=== PATIENT | male | born 1970 | race Caucasian/White ===

== ENCOUNTER 2025-03-20 13:54 | Emergency (ER) | payer SELFPAY ==
--- NOTE | ~2025-03-20 | XR_ITS ---
EXAMINATION: XR chest 1V portable DATE: 03/20/2025 14:35 INDICATION: Chest pain TECHNIQUE: AP view of the chest was obtained. COMPARISON: None FINDINGS: The lungs are clear with no focal airspace opacities, pulmonary edema, pleural effusion or pneumothor ax. The cardiomediastinal silhouette is normal. Moderate degenerative skeletal changes in the cervica l spine and left glenohumeral joint. IMPRESSION: 1. No acute cardiopulmonary disease. Reviewed, dictated and finalized at location A.
--- NOTE | ~2025-03-20 | US_ITS ---
EXAMINATION:US venous doppler LE LT INDICATION:Left lower extremity swelling TECHNIQUE: Multiple grayscale, color flow and Doppler images of the left lower extremity deep venous systems were obtained and reviewed. COMPARISON:No prior studies for comparison. FINDINGS: The common femoral, superficial femoral and popliteal veins demonstrate normal respiratory variation, augmentation and compressibility. Color flow is also seen within the posterior tibial, pe roneal, greater saphenous and profunda veins. IMPRESSION: 1: No lower extremity deep venous thrombosis. Reviewed, dictated and finalized at location A.
--- NOTE | ~2025-03-20 | CT_ITS ---
EXAMINATION: CTA chest PE protocol DATE: 03/20/2025 15:23 CDT INDICATION: Chest pain and hypoxia TECHNIQUE: Computed tomographic angiography (CTA) of the chest was performed with 100 mL Omnipaque-35 0 intravenous contrast. The dose-length product was 896.56 mGy-cm. Maximum intensity projection 3D-re constructions of the aorta and other arteries were constructed by the technologist on a separate work station. COMPARISON: None. FINDINGS/OBSERVATIONS: PULMONARY ARTERIES: No filling defect is identified within the main or proximal pulmonary artery. The main pulmonary artery is not enlarged. THORACIC AORTA: No aneurysmal dilatation or dissection is present. The great vessels are intact LUNGS: Subpleural blebs detected within the posterior inferior bilateral lung bases. Dependent atelectasis is also noted. Interstitial thickening is present. The remainder of the lungs are clear MEDIASTINUM: No morphologically suspicious or pathologically enlarged lymph nodes are identified with in the mediastinum or bilateral axilla. BONES OF THE CHEST: No acute fracture. Moderate degenerative disease. No lytic or blastic lesions. HEART: The heart is borderline enlarged, without pericardial effusion. IMPRESSION: No pulmonary embolus. No thoracic aortic dissection. Subpleural blebs within the posterior inferior bilateral lung bases with dependent atelectasis and in terstitial thickening. Reviewed, dictated and finalized at location A. IMPRESSION: No pulmonary embolus. No thoracic aortic dissection. Subpleural blebs within the posterior inferior bilateral lung bases with depend ent atelectasis and interstitial thickening.
--- NOTE | 2025-03-20 14:03 | ECG_ITS ---
Test Date: 2025-03-20 14:08:06 Measurements Intervals [place] Rate: 81 P: 20 MT: 152 QRS: -21 QRSD: 97 T: 31 QT: 355 QTc: 413 Interpretive Statements SINUS RHYTHM CONSIDER ANTERIOR INFARCT, AGE INDETERMINATE BASELINE WANDER- V3 ABNORMAL ECG No previous ECG available for comparison Electronically Signed On 03-20-2025 15:06:44 CDT by Jabier Stein D.O.
[2025-03-20 14:13] VITALS: BP 172/91; PULSE 79; RESP 19; TEMP 36.5; O2SAT 93; O2SAT 95
[2025-03-20 14:16] LABS: Hematocrit 42.3 % (42.0-52.0); Hemoglobin 14.5 g/dL (14.0-18.0); Immature Granulocyte Percent A 0.4 % (0-0.5); Lymphocytes Absolute Auto 2.12 K/mm3 (0.9-3.2); Mean Corpuscular HGB Conc 34.3 g/dl (32-36); Mean Corpuscular Hemoglobin 29.7 pg (26-34); Mean Corpuscular Volume 86.7 fl (80-100); Nucleated Red Blood Cells Absolute Auto 0.000 K/mm3 (0.0-0.012); Nucleated Red Blood Cells Perc 0.0 % (0.0-0.2); Platelet Count Result 187 k/mm3 (150-375); Red Blood Count 4.88 M/mm3 (4.6-6.20); White Blood Count 7.1 K/mm3 (4.5-10.0)
[2025-03-20 14:28] LABS: INR 1.0; Prothrombin Time 13.2 Seconds (11.1-14.7)
[2025-03-20 14:29] LABS: Partial Thromboplastin Time 34.4 Seconds (22.3-36.8)
[2025-03-20 14:32] LABS: Alanine Aminotransferase 36 U/L (6-50); Albumin Level 4.4 g/dL (3.5-5.1); Alkaline Phosphatase 89 U/L (38-126); Anion Gap 11 mmol/L (4-12); Aspartate Amino Transferase 37 U/L (17-59); Bilirubin,Total 0.5 mg/dL (0.2-1.3); Blood Urea Nitrogen 5 mg/dL (9-20); Calcium 8.9 mg/dL (8.4-10.2); Carbon Dioxide 21 mmol/L (22-30); Chloride 101 mmol/L (98-107); Estimated Glomerular Filt Rate > 60; Glucose 285 mg/dL (65-110); Potassium 4.1 mmol/L (3.4-5.0); Sodium 133 mmol/L (137-145); Total Protein 8.4 g/dL (6.3-8.2)
[2025-03-20 14:44] LABS: NT Pro B Type Natriuretic Pept 48 pg/mL (19.9-100); Troponin I < 0.012 ng/mL (0.000-0.034)
[2025-03-20 14:50] LABS: Add Urine Microscopic? YES; Appearance Urine Clear (Clear); Glucose Urine UA 3+ mg/dL (Negative); Leukocyte Esterase Ur Negative LEU/UL (Negative); Nitrate Urine Negative (Negative); Non Pathogenic Casts 0-2; Specific Grav Ur 1.015 (1.001-1.035)
--- NOTE | 2025-03-20 15:05 | ED.GENADULT ---
HPI - General Adult General Chief complaint: Chest Pain Stated complaint: CP/SOB History of Present Illness HPI narrative: 54-year-old male smoker presents to the emergency department for evaluation for substernal chest pain. Patient reports he has had intermittent chest pain but states worsened over the last few days. Patient does have some left lower extremity swelling but states acutely worsened today. Patient states his last stress test was approximately 10 years ago. Related Data Allergies Allergy/AdvReac Type Severity Reaction Status Date / Time No Known Allergies Allergy Verified 03/20/25 15:07 Review of Systems Review of Systems: All systems reviewed & are unremarkable except as noted in HPI and below Exam Narrative: APPEARANCE: Well appearing, no pain, no distress, well-nourished. HEAD: normocephalic, atraumatic. EYES: PERRLA/EOMI, conjunctivae clear. NOSE: Normal no drainage EARS:TMS clear with good light reflex. THROAT: Pharynx clear, no exudate. NECK: Supple. No adenopathy, no masses. RESPIRATORY: Expiratory wheeze lower lobes bilaterally CARDIOVASCULAR: Regular rate and rhythm without murmurs rubs or gallops. ABDOMINAL: Soft, nontender, nondistended, normal bowel sounds MUSCULOSKELETAL: Tenderness of left foot and left posterior calf with bilateral +1 edema NEURO: Alert. Cranial nerves II through XII intact. Good gait. Good coordination SKIN: Warm, dry. Normal Color Course Vital Signs Vital signs: Vital Signs Temperature 97.7 F 03/20/25 14:13 Pulse Rate 79 03/20/25 14:13 Respiratory Rate 19 03/20/25 14:13 Blood Pressure 172/91 H 03/20/25 14:13 Pulse Oximetry 95 03/20/25 14:13 Oxygen Delivery Nasal Cannula 03/20/25 14:13 Oxygen Flow Rate 3 03/20/25 14:13 Temperature 97.7 F 03/20/25 14:13 Pulse Rate 82 03/20/25 15:51 Respiratory Rate 17 03/20/25 15:51 Blood Pressure 173/87 H 03/20/25 15:51 Pulse Oximetry 97 03/20/25 15:51 Oxygen Delivery Nasal Cannula 03/20/25 15:50 Oxygen Flow Rate 5 03/20/25 15:50 Medical Decision Making [facility] Narrative Medical decision making narrative: 54-year-old male presents emergency department for evaluation for left foot pain and substernal chest pain. Patient is currently afebrile with no leukocytosis hemoglobin 14.5. Patient has INR 1.0. Patient has no acute abnormalities on his CMP other than elevated blood glucose of 285. ProBNP is not elevated and patient has negative serial troponins. UA was negative for infection. Ultrasound was negative for a DVT and CTA was negative for pulmonary embolism. Chest x-ray shows no acute cardiopulmonary abnormality. Differential Diagnosis Differential Diagnosis: ACS, pulmonary embolism, pneumothorax, DVT, COPD, pneumonia Vital Signs Vital Signs: Vital Signs Temperature 97.7 F 03/20/25 14:13 Pulse Rate 79 03/20/25 14:13 Respiratory Rate 19 03/20/25 14:13 Blood Pressure 172/91 H 03/20/25 14:13 Pulse Oximetry 95 03/20/25 14:13 Oxygen Delivery Nasal Cannula 03/20/25 14:13 Oxygen Flow Rate 3 03/20/25 14:13 Temperature 97.7 F 03/20/25 14:13 Pulse Rate 82 03/20/25 15:51 Respiratory Rate 17 03/20/25 15:51 Blood Pressure 173/87 H 03/20/25 15:51 Pulse Oximetry 97 03/20/25 15:51 Oxygen Delivery Nasal Cannula 03/20/25 15:50 Oxygen Flow Rate 5 03/20/25 15:50 Lab Data Lab results reviewed: Yes I reviewed the patient's lab results. 03/20/25 14:08 03/20/25 14:09 Labs: Lab Results 03/20/25 03/20/25 03/20/25 Range/Units 14:08 14:09 14:09 WBC 7.1 (4.5-10.0) K/mm3 RBC 4.88 (4.6-6.20) M/mm3 Hgb 14.5 (14.0-18.0) g/dL Hct 42.3 (42.0-52.0) % MCV 86.7 (80-100) fl MCH 29.7 (26-34) pg MCHC 34.3 (32-36) g/dl RDW 13.7 (11.5-14.5) % Plt Count 187 (150-375) k/mm3 MPV 10.1 (7.4-10.4) fl Immature Gran % (Auto) 0.4 (0-0.5) % Neut % (Auto) 60.1 (45.5-73.1) % Lymph % (Auto) 29.8 (18.3-44.2) % Mobile % (Auto) 7.7 (2.6-8.5) % Eos % (Auto) 1.4 (0-4.4) % Baso % (Auto) 0.6 (0.2-1.2) % Lymph # (Auto) 2.12 (0.9-3.2) K/mm3 Mobile # (Auto) 0.6 (0.1-0.6) K/mm3 Eos # (Auto) 0.1 (0-0.3) K/mm3 Baso # (Auto) 0.0 (0.0-0.1) K/mm3 Abs Immat Gran (auto) 0.03 (0.00-0.031) K/mm3 Absolute Neuts (auto) 4.3 (1.3-6.7) K/mm3 Absolute Nucleated RBC 0.000 (0.0-0.012) K/mm3 Nucleated RBC % 0.0 (0.0-0.2) % PT 13.2 (11.1-14.7) Seconds INR 1.0 APTT 34.4 (22.3-36.8) Seconds Sodium 133 L (137-145) mmol/L Potassium 4.1 (3.4-5.0) mmol/L Chloride 101 (98-107) mmol/L Carbon Dioxide 21 L (22-30) mmol/L Anion Gap 11 (4-12) mmol/L BUN 5 L (9-20) mg/dL Creatinine 0.69 L (0.7-1.3) mg/dL Estim Creat Clear Calc Not Reportable Estimated GFR > 60 (59 - ) Glucose 285 H (65-110) mg/dL Calcium 8.9 (8.4-10.2) mg/dL Total Bilirubin 0.5 (0.2-1.3) mg/dL AST 37 (17-59) U/L ALT 36 (6-50) U/L Alkaline Phosphatase 89 (38-126) U/L Troponin I < 0.012 Cancelled (0.000-0.034) ng/mL NT-Pro-B Natriuret Pep 48 (19.9-100) pg/mL Total Protein 8.4 H (6.3-8.2) g/dL Albumin 4.4 (3.5-5.1) g/dL Urine Color (Yellow) Urine Appearance (Clear) Urine pH (5.0-9.0) Ur Specific [place] (1.001-1.035) Urine Protein (Negative) mg/dL Urine Glucose (UA) (Negative) mg/dL Urine Ketones (Negative) mg/dL Ur Blood (Man) (Negative) Urine Nitrate (Negative) Urine Bilirubin (Negative) Urine Urobilinogen (<2.0) mg/dL Leukocyte Esterase Rfl (Negative) ELWIS/UL Urine RBC (0-2) /hpf Urine WBC (0-3) /hpf Ur Squamous Epith Cells (Few) /hpf Urine Bacteria /hpf Urine Casts 03/20/25 03/20/25 Range/Units 14:39 16:57 WBC (4.5-10.0) K/mm3 RBC (4.6-6.20) M/mm3 Hgb (14.0-18.0) g/dL Hct (42.0-52.0) % MCV (80-100) fl MCH (26-34) pg MCHC (32-36) g/dl RDW (11.5-14.5) % Plt Count (150-375) k/mm3 MPV (7.4-10.4) fl Immature Gran % (Auto) (0-0.5) % Neut % (Auto) (45.5-73.1) % Lymph % (Auto) (18.3-44.2) % Mobile % (Auto) (2.6-8.5) % Eos % (Auto) (0-4.4) % Baso % (Auto) (0.2-1.2) % Lymph # (Auto) (0.9-3.2) K/mm3 Mobile # (Auto) (0.1-0.6) K/mm3 Eos # (Auto) (0-0.3) K/mm3 Baso # (Auto) (0.0-0.1) K/mm3 Abs Immat Gran (auto) (0.00-0.031) K/mm3 Absolute Neuts (auto) (1.3-6.7) K/mm3 Absolute Nucleated RBC (0.0-0.012) K/mm3 Nucleated RBC % (0.0-0.2) % PT (11.1-14.7) Seconds INR APTT (22.3-36.8) Seconds Sodium (137-145) mmol/L Potassium (3.4-5.0) mmol/L Chloride (98-107) mmol/L Carbon Dioxide (22-30) mmol/L Anion Gap (4-12) mmol/L BUN (9-20) mg/dL Creatinine (0.7-1.3) mg/dL Estim Creat Clear Calc Estimated GFR (59 - ) Glucose (65-110) mg/dL Calcium (8.4-10.2) mg/dL Total Bilirubin (0.2-1.3) mg/dL AST (17-59) U/L ALT (6-50) U/L Alkaline Phosphatase (38-126) U/L Troponin I < 0.012 (0.000-0.034) ng/mL NT-Pro-B Natriuret Pep (19.9-100) pg/mL Total Protein (6.3-8.2) g/dL Albumin (3.5-5.1) g/dL Urine Color Yellow (Yellow) Urine Appearance Clear (Clear) Urine pH 6.0 (5.0-9.0) Ur Specific [place] 1.015 (1.001-1.035) Urine Protein Trace (Negative) mg/dL Urine Glucose (UA) 3+ H (Negative) mg/dL Urine Ketones Negative (Negative) mg/dL Ur Blood (Man) Negative (Negative) Urine Nitrate Negative (Negative) Urine Bilirubin Negative (Negative) Urine Urobilinogen 1.0 (<2.0) mg/dL Leukocyte Esterase Rfl Negative (Negative) LEWIS/UL Urine RBC 0-2 (0-2) /hpf Urine WBC 0-5 (0-3) /hpf Ur Squamous Epith Cells None seen (Few) /hpf Urine Bacteria None seen /hpf Urine Casts 0-2 Imaging Data Radiologist's impression: Impressions Chest X-Ray 03/20/25 14:39 IMPRESSION: 1. No acute cardiopulmonary disease. Chest CTA 03/20/25 15:22 IMPRESSION: No pulmonary embolus. No thoracic aortic dissection. Subpleural blebs within the posterior inferior bilateral lung bases with dependent atelectasis and interstitial thickening. Venous Doppler Study 03/20/25 15:41 IMPRESSION: 1: No lower extremity deep venous thrombosis. Discharge Plan Discharge Clinical Impression: Chest pain, Shortness of breath Patient Disposition: Home Condition: Stable Instructions: Antibiotic Form, Chest Pain (ED) Additional Instructions: Have close follow-up with your primary care physician for additional outpatient cardiac testing. If you have any worsening symptoms then please call or return to the emergency department. Patient is safe to drive a commercial vehicle Patient Language: Sinhala Prescriptions: New albuterol sulfate 90 mcg/actuation HFA aerosol inhaler 1 puff inhalation QID Qty: 6.7 0RF Follow-up/Referrals: PHYSICIAN,WIND COMMISSIONING TECHNICIAN [Primary Care Provider] - Stand Alone Forms: Work/School Release IP Quality HEART score for chest pain patients History: slightly suspicious ECG: normal Age: > 45 and < 65 years Risk factors: 1 or 2 risk factors Troponin: < or = to 1x normal limit Heart score: 2
--- NOTE | 2025-03-20 15:33 | PC.NURSE ---
pt in ultrasound at this time
[2025-03-20] MEDS: ALBUTEROL SULFATE NEB 2.5 MG/3 ML INH 5 MG INHALATION (15:40)
[2025-03-20 15:43] VITALS: RESP 20
[2025-03-20 15:49] VITALS: RESP 18
[2025-03-20 15:50] VITALS: O2SAT 98
[2025-03-20 15:51] VITALS: BP 173/87; PULSE 82; RESP 17; O2SAT 97
--- OUTSIDE RECORDS SUMMARY | 2025-03-20 16:06 | XMS_ITS | Clinical Summary ---
Author Organization [facility] Address [address] [place] [address] Phone Care Team Providers Care Sander Wooden [employer]encils Name Role Phone Provider, None Primary Care Provider Unavailabl e Allergies No known active allergies Medications Naproxen Sodium (Aleve) 220 MG Capsule Take 220 mg by mouth as needed. Active Social History Tobacco Use Types Packs/Day Years Used Date Smoking Tobacco: Every Day Cigarettes 1.5 25 Smokeless Tobacco: Never Tobacco Cessation:Ready to Q uit: No; Counseling Given: No Alcohol Use Standard Drinks/Week Comments Yes 0 (1 standard drink = 0.6 oz pur e alcohol) 6pk/ month Sex and Gender Information Value Date Recorded Sex Assigned at Not on file Legal Sex Male 5:35 PM CDT Gender Identity Not on file Sexual Orientation Not on file Last Filed Vital Signs Vital Sign Reading Time Taken Comments Blood Pressure 131/71 01/03/2022 6:42 PM EDT Pulse 98 01/03/2022 8:46 PM EDT Temperature 36.5 C (97.7 F) 01/03/2022 6:42 PM EDT Respiratory Rate 16 01/03/2022 6:42 PM EDT Oxygen Saturation 94% 01/03/2022 8:46 PM EDT Inhaled Oxygen Concentration - - Weight 108 kg (238 lb) 01/03/2022 6:42 PM EDT Height 185.4 cm (6' 1) 01/03/2022 6:42 PM EDT Body Mass Index 31.4 01/03/2022 6:42 PM EDT Plan of Treatment Not on file Care Teams Sander [employer] Penc[employer] Relationship Specialty Start Date End Date Provider, None [place] PCP - General 01/03/22
[2025-03-20 17:26] LABS: Troponin I < 0.012 ng/mL (0.000-0.034)
== END 2025-03-20 18:12 | disposition home or self-care (01) ==
PROVIDERS: Emergency Provider Emergency Medicine
DX: R07.89 Other chest pain (principal); R06.02 Shortness of breath
CPT/HCPCS: 36415; 71045; 71275; 80053; 81001; 83880; 84484; 85025; 85610; 85730; 93005; 93971; 94640; 99284; Q9967